=== PATIENT | female | born 1930 | race Hispanic/Latino ===

== ENCOUNTER 2016-08-09 16:38 | Emergency (ER) | payer MEDICAID, OTHER, SELFPAY ==
[2016-08-09] MEDS ORDERED: Ondansetron HCl/PF 4 MG/2 ML Vial ONE (17:28)
[2016-08-09] MEDS ORDERED: Morphine Sulfate 2 MG/ML SYRINGE ONE (17:28)
--- NOTE | 2016-08-09 18:27 | RAD ---
TWO VIEWS OF THE RIGHT HIP 08/09/16 INDICATION: Fall with right hip pain. FINDINGS: There is a comminuted, angulated and mildly displaced right hip intertrochanteric fracture. No addit ional fracture is evident. IMPRESSION: Comminuted, angulated and displaced right intertrochanteric hip fracture. POS: [facility]
--- NOTE | 2016-08-09 18:37 | RAD ---
FOUR VIEWS OF THE RIGHT FEMUR 08/09/16 INDICATION: Injury. COMPARISON: None. FINDINGS: There is a comminuted angulated right intertrochanteric hip fracture. No additional fracture is evid ent. There is diffuse osteopenia. IMPRESSION: Right hip intertrochanteric fracture. POS: [facility]
[2016-08-09 18:44] LABS: Prothrombin Time 13.7 SEC (12.0-14.7)
[2016-08-09 18:47] LABS: Hemoglobin 12.6 g/dL (12.0-16.0); Red Blood Cell (RBC) Count 3.93 mill/uL (4.20-5.40); White Blood Cell (WBC) Count 8.3 thou/uL (4.8-10.8)
[2016-08-09 18:48] LABS: #Lymphocytes 0.7 thou/uL (1.20-3.40); #Monocytes 0.7 thou/uL (0.11-0.59); #Neutrophils 6.9 thou/uL (1.40-6.50); %Basophils 0.5 % (0.0-1.0); %Neutrophils 83.4 % (42.0-75.0); Mean Corpuscular HGB CONC 33.3 g/dL (32.0-36.0); Mean Corpuscular Volume 96.3 fL (81.0-99.0); Mean Platelet Volume 11.1 fL (7.4-10.4); Platelet Count 136 thou/uL (130-400); RBC Distribution Width 11.8 % (11.5-14.5)
--- NOTE | 2016-08-09 18:55 | RAD ---
AP VIEW OF THE CHEST 08/09/16 INDICATION: Preop. FINDINGS: Since the comparison dated 07/14/16, there is persistent mild left pleural effusion. This is slightly diminished from the comparison. There is a residual tiny right pleural effusion, also diminished fr om the prior. There is prominent cardiomegaly with pulmonary vascular congestion and mild interstiti al edema. No pneumothorax is evident. IMPRESSION: Persistent changes of CHF although improved from the prior exam dated 07/14/16. POS: [facility]
[2016-08-09 19:01] LABS: Bacteria/HPF Rare-Few HPF (None Seen); Bilirubin Negative (Negative); Blood, Urine Negative (Negative); Clarity Clear (Clear); Glucose, Urine (Dipstick) Negative (Negative); Leukocyte Negative (Negative); Nitrite Negative (Negative); Protein, Urine (Dipstick) Trace mg/dL (Neg-Trace); RBC/HPF 0-3 HPF (0-3); Specific Gravity, Urine 1.015 (1.005-1.030); Squamous Epithelial 0-3 HPF (0-3); Urobilinogen 0.2 mg/dL (0.2-1.0); WBC/HPF 0-3 HPF (0-3)
== END 2016-08-09 18:53 | disposition short-term general hospital (02) ==
LOC: MADERS 16:38
DX: S72.141A Displaced intertrochanteric fracture of right femur, initial encounter for closed fracture (principal); E78.5 Hyperlipidemia, unspecified; E78.00 Pure hypercholesterolemia, unspecified; I10 Essential (primary) hypertension; M81.0 Age-related osteoporosis without current pathological fracture; F32.9 Major depressive disorder, single episode, unspecified; Z79.82 Long term (current) use of aspirin; Z79.899 Other long term (current) drug therapy; W17.89XA Other fall from one level to another, initial encounter
CPT/HCPCS: 71010; 81001; 85025; 85610; 85730; 93005; 94760; 96374; 96375; 96376; J2270; J2405